=== PATIENT | male | born 1980 | race Caucasian/White ===

== ENCOUNTER 2018-11-16 08:51 | Inpatient (IN) | payer OTHER ==
[2018-11-15 14:44] VITALS: Ht 177.8 cm; Wt 84.0 kg
[2018-11-16] VITALS (20 sets, daily range): BP systolic 104–157; BP diastolic 53–84; PULSE 69–115; RESP 16–20
[~2018-11-16] VITALS: Ht 177.8 cm; Wt 84.0 kg
[~2018-11-16 08:51] MED LIST: CEFAZOLIN 2 GM/50 ML (PMX) 50 ML IVPB ONE; LACTATED RINGER'S 1,000 ML IV SCH
[2018-11-16] MEDS ORDERED: OLME20TA20 PO (09:34)
[2018-11-16] MEDS ORDERED: PARO30TA48 PO (09:35)
[2018-11-16] MEDS ORDERED: ALLO100T PO (09:35)
[2018-11-16] MEDS ORDERED: PROPOFOL 20 ML ONE ×2 (09:42→11:50)
[2018-11-16] MEDS ORDERED: CEFAZOLIN 1 GM INJ ONE (09:42)
[2018-11-16] MEDS ORDERED: ROCURONIUM 50 MG INJ ONE ×3 (09:42→12:51)
[2018-11-16] MEDS ORDERED: SUCCINYLCHOLINE CHLORIDE 100 MG/5 ML SYG IV ONE (09:42)
[2018-11-16] MEDS ORDERED: MIDAZOLAM 1 MG/ML 2 ML INJ ONE (09:43)
[2018-11-16] MEDS ORDERED: ONDANSETRON 4 MG INJ ONE (09:43)
[2018-11-16] MEDS ORDERED: DEXAMETHASONE 4 MG/ML 5 ML INJ ONE (09:43)
[2018-11-16] MEDS ORDERED: KETOROLAC 30 MG INJ ONE (09:43)
--- NOTE | 2018-11-16 10:20 | HPN ---
Date/Time of Note Date/Time of Note DATE: 11/16/18 TIME: 10:20 Interval H&P Admission Note Pt. seen H&P reviewed: No system changes NAKITA TABARES MD Nov 16, 2018 10:20
--- NOTE | 2018-11-16 10:52 | PREAC ---
Date/Time of Note Date/Time of Note DATE: 11/16/18 TIME: 10:49 Anesthesia Eval and Record Evaluation Time Pre-Procedure Interview DATE: 11/16/18 TIME: 10:49 Age 38 Sex male NPO: 8 hrs Preoperative diagnosis Cervical Radiculopathy Planned procedure Ant. C5-6 Disecktomy, Possible Ant. Fusion Past Medical History Past Medical History: Includes Cardio: HTN Surgery & Anesthesia Issues No known issue Meds Anticoagulation: No Beta Abdoulaye within 24 hr: No Reason Beta Abdoulaye not given: Pt. not on B-Abdoulaye Reported Medications Allopurinol* (Allopurinol*) 100 Mg Tablet, 100 MG PO DAILY, TAB 11/16/18 Paroxetine Hcl* (Paxil*) 30 Mg Tablet, 30 MG PO DAILY, TAB 11/16/18 Olmesartan Medoxomil (Benicar) 20 Mg Tablet, 20 MG PO DAILY, #30 TAB 11/16/18 Current Medications Lactated Ringer's 1,000 ml @ 0 mls/hr Q0M IV Last administered on 11/16/18at 09:59; Admin Dose 25 MLS/HR; Start 11/16/18 at 08:00; Stop 11/16/18 at 14:00 Meds reviewed: Yes Allergies Coded Allergies: No Known Allergy (Unverified , 11/16/18) Allergies Reviewed: Yes Labs/Studies Labs Reviewed: Reviewed by anesthesiologist test: N/A Pre-procedure Exam Last vitals Vital Signs Date Temp Pulse Resp B/P (MAP) Pulse Ox O2 O2 Flow FiO2 Time Delivery Rate 11/16/18 97.3 95 16 127/84 100 Room Air 09:47 (98) Airway: Adequate mouth opening Mallampati: Mallampati II Teeth: Normal Lung: Normal Heart: Normal ASA Physical Status ASA physical status: 2 Emergency: None Planned Anesthetic General/MAC: ETT Pre-operative Attestations Prior to commencing anesthesia and surgery, the patient was re-evaluated, there was verification of: *The patient's identity *The results of appropriate recent lab work and preoperative vital signs *The above evaluation not changing prior to induction *Anesthetic plan, risk benefits, alternative and complications discussed with patient/family; questions answered; patient/family understands, accepts and wishes to proceed. LEANDRO CUBA MD Nov 16, 2018 10:52
[2018-11-16] MEDS ORDERED: THROMBIN (BOVINE) 5,000 UNIT VIAL TP ONE (11:05)
[2018-11-16] MEDS ORDERED: BUPIVACAINE 0.25%/EPI (SDV) 30 ML INJ ONE (11:05)
[2018-11-16] MEDS ORDERED: POLYMYXIN/BACITRACIN 1L IRRIG ONE (11:05)
[2018-11-16] MEDS ORDERED: GELATIN SIZE 100 SPONGE ONE (11:05)
[2018-11-16] MEDS ORDERED: SURGIFOAM POWDER 1 GM KIT ONE (11:05)
[2018-11-16] MEDS ORDERED: HYDROmorphONE 1 MG/5 ML IV SYRINGE IV PRN ×2 (12:30)
[2018-11-16] MEDS ORDERED: ONDANSETRON 4 MG INJ IV PRN ×2 (12:30→15:30)
[2018-11-16] MEDS ORDERED: NEOSTIGMINE 3 MG/3 ML SYRINGE ONE (13:35)
[2018-11-16] MEDS ORDERED: GLYCOPYRROLATE 0.4 MG INJ ONE (13:35)
[2018-11-16] MEDS ORDERED: AL HYDROX/MG HYDROX/SIMETH 30 ML CUP PO PRN (15:30)
[2018-11-16] MEDS ORDERED: HYDROmorphONE 0.2 MG/ML PCA IV SCH (15:30)
[2018-11-16] MEDS ORDERED: NACL 0.9% 3 ML SYG IV SCH (15:30)
[2018-11-16] MEDS ORDERED: PROCHLORPERAZINE 10 MG TAB PO PRN (15:30)
[2018-11-16] MEDS ORDERED: HYDROCODONE/APAP (5/325) TAB PO PRN ×2 (15:30)
[2018-11-16] MEDS ORDERED: ACETAMINOPHEN 325 MG TAB PO PRN (15:30)
[2018-11-16] MEDS ORDERED: NALOXONE (0.4 MG/ML) INJ IV PRN (15:30)
--- NOTE | 2018-11-16 15:30 | OPR ---
Date/Time of Note Date/Time of Note DATE: 11/16/18 TIME: 15:22 Operative Report Free Text/Dictation DATE OF OPERATION: 11/16/2018 PREOPERATIVE DIAGNOSES: 1. 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 Anterior cervical C5-6 diskectomy. 2. Anterior cervical disc replacement, C5-6 3. Use of Operative microscope. 4. Interpretation of Neuromonitoring SURGEON: Nakita Tabares MD SUPERVISOR TILE AND MOTTLE: GABY Hollingsworth INDICATIONS: Mr. Bryan is a 38-year-old gentleman who presents with a year history of right upper extremity pain wityh weakness refractory to conservative management associated with extension and rotation as well as axial loading. Preoperative imaging studies demonstrated disk degeneration and a disk herniation at the C5-6 level cord compression and C6 nerve root compression. After having failed all attempts at conservative management, he understood the risks included, but were not limited to, infection, neurologic injury, blood loss, dural tear, persistence of preoperative symptoms and a potential need for further operative procedures and elected to proceed with surgery. PROCEDURE IN DETAIL: The patient was brought in the operating room. General anesthesia was obtained. Preoperative antibiotics were given. He was carefully positioned supine on the radiolucent table. The arms were padded and tucked at the sides. The neck was sterilely prepped and draped in the usual fashion. A standard left-sided skin incision was made in a prominent anterior skin fold. This was continued down through subcutaneous tissue to the platysma fascia. Full-thickness skin flaps were developed. The platysma was split in line with the direction of its fibers. The dissection proceeded through the deep cervical fascia at the interval between the esophagus and spine. The prevertebral fascia was carefully incised, cleared off at the anterior aspect of the C5-6 disk space. The anterior longitudinal ligament was carefully isolated as was the longus coli bilaterally. A Bartelso retraction cannula was placed into the C5 vertebral body, and an intraoperative radiograph was obtained to confirm the location of the midline along with the operative level. Once this was confirmed, a 2nd Bartelso pin was placed in the C6 vertebral body, and the longus colli was mobilized bilaterally using bipolar cautery and an elevator. A deep self- retaining retractor was placed underneath the longus colli bilaterally and then distraction was applied across the interspace. The operative microscope was at this point brought in. The osteophyte projecting over the anterior aspect of the C5-6 disk space was at this point resected with a spinal rongeur, and then the anterior portion of the disk was incised with a #15 blade. The disk was excised in its entirety using a series of pituitary rongeurs and angled curettes back to the posterior longitudinal ligament. The uncovertebral osteophyte was resected along its medial 3rd to provide a platform for the disk replacement and also to allow for foraminal decompression. The posterior osteophytes projecting off the back of the C5 and C6 vertebral bodies were slightly burred down, and then the posterior longitudinal ligament was resected , 1st centrally and then in either direction. A foraminotomy was performed bilaterally until a probe could be easily passed along the pathway of the C6 root. Hemostasis was obtained at this point, and then a series of trial sizers were used to select an implant 17 mm wide by 5 mm tall x 17 mm in an anterior-posterior depth. Intraoperative radiographs demonstrated good alignment of the trial, and then the final implant was selected and then inserted into the disk space under trimmer operator three knife's instructions using the appropriate instrumentation. Once this was positioned appropriately and extended to the back of the C5 and C6 vertebral bodies, the operative site was washed out extensively with sterile normal saline. There was no significant bleeding. The Jaspal pins were removed, and the sites were bloc ked off with bone wax. The platysma fascia was then closed with 3-0 Vicryl suture in a interrupted fashion over a medium Hemovac, followed by 4-0 Monocryl suture in a running subcuticular fashion. Dermabond was placed, followed by a sterile dressing. The patient was extubated and transferred out to the postanesthesia care unit in a soft collar in good condition. There were no compl ications. Procedure Date: Nov 16, 2018 Preoperative Diagnosis 1. 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 Anterior cervical C5-6 diskectomy. 2. Anterior cervical disc replacement, C5-6 3. Use of Operative microscope. 4. Interpretation of Neuromonitoring Surgeon see signature line Anodizer GABY Hollingsworth Anesthesia Type: general Estimated Blood Loss: 10 - 50 ml's Transfusion none Specimen none Grafts/Implants Mobi-C [id number] cervical disk arthroplasty Complications none Pt Condition Post Procedure: stable Disposition: PACU Procedure Description PROCEDURE IN DETAIL: The patient was brought in the operating room. General anesthesia was obtained. Preoperative antibiotics were given. He was carefully positioned supine on the radiolucent table. The arms were padded and tucked at the sides. The neck was sterilely prepped and draped in the usual fashion. A standard left-sided skin incision was made in a prominent anterior skin fold. This was continued down through subcutaneous tissue to the platysma fascia. Full-thickness skin flaps were developed. The platysma was split in line with the direction of its fibers. The dissection proceeded through the deep cervical fascia at the interval between the esophagus and spine. The prevertebral fascia was carefully incised, cleared off at the anterior aspect of the C5-6 disk space. The anterior longitudinal ligament was carefully isolated as was the longus coli bilaterally. A Bartelso retraction cannula was placed into the C5 vertebral body, and an intraoperative radiograph was obtained to confirm the location of the midline along with the operative level. Once this was confirmed, a 2nd Bartelso pin was placed in the C6 vertebral body, and the longus colli was mobilized bilaterally using bipolar cautery and an elevator. A deep self- retaining retractor was placed underneath the longus colli bilaterally and then distraction was applied across the interspace. The operative microscope was at this point brought in. The osteophyte projecting over the anterior aspect of the C5-6 disk space was at this point resected with a spinal rongeur, and then the anterior portion of the disk was incised with a #15 blade. The disk was excised in its entirety using a series of pituitary rongeurs and angled curettes back to the posterior longitudinal ligament. The uncovertebral osteophyte was resected along its medial 3rd to provide a platform for the disk replacement and also to allow for foraminal decompression. The posterior osteophytes projecting off the back of the C5 and C6 vertebral bodies were slightly burred down, and then the posterior longitudinal ligament was resected , 1st centrally and then in either direction. A foraminotomy was performed bilaterally until a probe could be easily passed along the pathway of the C6 root. Hemostasis was obtained at this point, and then a series of trial sizers were used to select an implant 17 mm wide by 5 mm tall x 17 mm in an anterior-posterior depth. Intraoperative radiographs demonstrated good alignment of the trial, and then the final implant was selected and then inserted into the disk space under trimmer operator three knife's instructions using the appropriate instrumentation. Once this was positioned appropriately and extended to the back of the C5 and C6 vertebral bodies, the operative site was washed out extensively with sterile normal saline. There was no significant bleeding. The Jaspal pins were removed, and the sites were b locked off with bone wax. The platysma fascia was then closed with 3-0 Vicryl suture in a interrupted fashion over a medium Hemovac, followed by 4-0 Monocryl suture in a running subcuticular fashion. Dermabond was placed, followed by a sterile dressing. The patient was extubated and transferred out to the postanesthesia care unit in a soft collar in good condition. There were no co mplications. NAKITA TABARES MD Nov 16, 2018 15:30
--- NOTE | 2018-11-16 15:39 | PAC ---
Date/Time of Note Date/Time of Note DATE: 11/16/18 TIME: 15:39 Post-Anesthesia Notes Post-Anesthesia Note Last documented vital signs Vital Signs Date Temp Pulse Resp B/P (MAP) Pulse Ox O2 O2 Flow FiO2 Time Delivery Rate 11/16/18 97.3 95 16 127/84 100 Room Air 09:47 (98) Activity: WNL Respiratory function: WNL Cardiovascular function: WNL Mental status: Baseline Pain reasonably controlled: Yes Hydration appropriate: Yes Nausea/Vomiting absent: Yes LEANDRO CUBA MD Nov 16, 2018 15:39
[2018-11-16] MEDS: FENTAnyl 50 MCG/ML VIAL IV PRN ×4 (15:46→16:05)
[2018-11-16] MEDS: ACETAMINOPHEN 1000MG/100ML IV 100 ML IVPB SCH ×2 (15:47→23:41)
[2018-11-16] MEDS: CEFAZOLIN 1 GM/50 ML (PMX) 50 ML IVPB SCH (17:32)
[2018-11-16] MEDS: SOD CHLORIDE 0.9% 1,000 ML IV SCH (18:17)
--- NOTE | 2018-11-16 20:03 | CONS ---
DATE OF ADMISSION: 11/16/2018 DATE OF CONSULTATION: 11/16/2018 TYPE OF CONSULTATION: Postoperative medical. Thank you very much for allowing me to evaluate the above patient who just underwent cervical spine s urgery. HISTORICAL EVENTS: As you well know, this patient was evaluated in 09/2018 when he presented with a 9-month history of neck pain and related right arm radicular pain. The latter had not responded to n onsteroidals and ultimately, he underwent an MRI study. Following the latter and your review and hav ing progressive symptoms and weakness involving the same, he elected to proceed with surgical interve ntion. Postoperatively on the orthopedic floor, he has modest neck pain. He denies cough, wheezing, shortness of breath, chest pain or abdominal pain. He has mild nausea. PAST MEDICAL HISTORY: Includes: 1. Anxiety. 2. Hypertension. 3. Left foot surgery and right foot surgery. 4. Mood disorder. 5. History of gout. ALLERGIES: NONE. SOCIAL HISTORY: He is . Occasionally drinks alcohol. Does not drink alcohol. FAMILY HISTORY: Will be reviewed later. MEDICATIONS PRIOR TO ADMISSION: 1. Allopurinol 100 mg b.i.d. 2. Flexeril 10 mg. 3. Relafen 500 mg. 4. Olmesartan 20 mg per day. 5. Paroxetine 30 mg daily. PHYSICAL EXAMINATION: GENERAL: Male young male in no acute distress. VITAL SIGNS: BP 122/78, pulse 72, respirations were 18. He was afebrile. HEENT: Eyes: Extraocular muscles were full. Nose, mouth and throat are normal. NECK: Collar in place. LUNGS: Clear. HEART: Rhythm regular. ABDOMEN: Nontender. Liver and spleen were not palpable. No mass or tenderness were noted. EXTREMITIES: No edema, no calf tenderness. NEUROLOGIC: No weakness of the lower extremities. IMPRESSION: 1. Stable postoperative cervical spine surgery. 2. History of hypertension. We will resume blood pressure meds. 3. History of gout. We will resume allopurinol. 4. We will evaluate daily for signs and symptoms of thromboembolic disease. Dictated By: LORENZO ALEXANDER MD MR/NTS Conf#: [id number] DID#: [id number] CC: NAKITA TABARES MD;*EndCC*
[2018-11-16] MEDS ORDERED: HYDROmorphONE 0.5 MG/0.5 ML SYG IV PRN (21:30)
[2018-11-17 00:15] VITALS: BP 125/79; PULSE 66; RESP 18
[2018-11-17] MEDS: CEFAZOLIN 1 GM/50 ML (PMX) 50 ML IVPB SCH ×2 (00:33→05:51)
[2018-11-17 05:30] VITALS: BP 126/68; PULSE 70; RESP 18
[2018-11-17] MEDS: ACETAMINOPHEN 1000MG/100ML IV 100 ML IVPB SCH (06:56)
[2018-11-17] MEDS: SOD CHLORIDE 0.9% 1,000 ML IV SCH (06:56)
[2018-11-17 07:14] VITALS: BP 122/62; PULSE 78; RESP 19
--- NOTE | 2018-11-17 08:28 | PDOCDIS ---
Discharge Instructions CONDITION [id number] Patient Condition: [id number] Good HOME CARE INSTRUCTIONS: [id number] Diet Instructions: [id number] Regular ACTIVITY: [id number] Activity Restrictions: Asipq0w Slowly Increase Activity Rest between Activity Avoid heavy lifting Avoid Heavy Housework [id number] Bathing Restrictions: Glbfr0x Shower FOLLOW UP/APPOINTMENTS Follow-up Plan Follow-up with Dr. Tabares in 2 weeks NAKITA TABARES MD Nov 17, 2018 08:28
[2018-11-17] MEDS ORDERED: DEXAMETHASONE 10 MG/ML 1 ML INJ IV ONE (08:30)
--- NOTE | 2018-11-17 08:46 | CONS ---
Assessment/Plan Assessment/Plan Assessment/Plan (Daily) 1. Stable post op cx spine surgery 2. HBP, controlled 3. Hyperlipemia, statin has been continued 4. Can dc if ok with ortho, OT and PT Consultation Date/Type/Reason Admit Date/Time Nov 16, 2018 at 08:51 Initial Consult Date Date/Time of Note DATE: 11/17/18 TIME: 08:43 Detailed Summary Respiratory: No cough Cardiovascular: No chest pain, No lightheadedness Gastrointestinal: no complaints Genitourinary: no complaints Musculoskeletal: neck pain (mild with sl diff swallowing) Exam/Review of Systems Exam Vitals Vital Signs Date Temp Pulse Resp B/P (MAP) Pulse Ox O2 O2 Flow FiO2 Time Delivery Rate 11/17/18 98.1 78 19 122/62 98 07:14 (82) 11/16/18 Nasal 2.0 19:00 Cannula Intake and Output 11/16/18 11/16/18 11/17/18 1515:00 23:00 07:00 IntakeIntake Total 2000 ml 380 ml 2050 ml OutputOutput Total 235 ml 1915 ml BalanceBalance 2000 ml 145 ml 135 ml Neck: No jvd Cardiovascular: regular rate and rhythm Gastrointestinal: soft Extremities: No edema, No tenderness Results Result Diagram: 11/17/18 0424 11/17/18 0424 Results 24hrs Laboratory Tests Test 11/17/18 04:24 11/17/18 07:07 Hemoglobin 13.0 L Hematocrit 37.7 L Sodium Level 139 Potassium Level 5.1 Chloride Level 105 Carbon Dioxide Level 28 Anion Gap 6 Blood Urea Nitrogen 10 Creatinine 0.79 Est Glomerular Filtrat Rate mL/min > 60 Glucose Level 126 Calcium Level 9.3 Lab Scanned Report REFERENCE LAB Medications Medication Current Medications Acetaminophen/ Hydrocodone Bitart ([place] (5/325)) 1 tab Q4H PRN PO .PAIN 1-5; Start 11/16/18 at 15:30 Acetaminophen/ Hydrocodone Bitart ([place] (5/325)) 2 tab Q4H PRN PO .PAIN 6-10; Start 11/16/18 at 15:30 Cefazolin Sodium 50 ml @ 100 mls/hr Q6 IVPB Last administered on 11/17/18at 05:51; Admin Dose 100 MLS/HR; Start 11/16/18 at 18:00; Stop 11/17/18 at 12:29 Prochlorperazine (Compazine) 10 mg Q4H PRN PO NAUSEA/VOMITING; Start 11/16/18 at 15:30 Ondansetron HCl (Zofran Inj) 4 mg Q6H PRN IV NAUSEA/VOMITING Last administered on 11/16/18at 21:45; Admin Dose 4 MG; Start 11/16/18 at 15:30 Al Hydrox/Mg Hydrox/Simethicone (Mag-Al Plus) 15 ml Q4H PRN PO .CONSTIPATION; Start 11/16/18 at 15:30 Docusate Sodium (Colace) 100 mg BID PO ; Start 11/17/18 at 09:00 Acetaminophen (Tylenol Tab) 650 mg Q4H PRN PO TEMP GREATER THAN 101F OR JESISCA; Start 11/16/18 at 15:30 IV Flush (NS 3 ml) 3 ml PER PROTOCOL IV ; Start 11/16/18 at 15:30 Naloxone HCl (Narcan) 0.2 mg Q2M PRN IV RR 8 BREATHS/MIN OR LESS; Start 11/16/18 at 15:30 Acetaminophen 100 ml @ 400 mls/hr Q8H IVPB Last administered on 11/17/18at 06:56; Admin Dose 400 MLS/HR; Start 11/16/18 at 15:30; Stop 11/17/18 at 15:29 Lidocaine (Lidoderm) 1 patch DAILY TD ; Start 11/17/18 at 09:00 Allopurinol (Zyloprim) 200 mg DAILY PO ; Start 11/17/18 at 09:00 Paroxetine HCl (Paxil) 30 mg DAILY PO ; Start 11/17/18 at 09:00 Losartan Potassium (Cozaar) 100 mg DAILY PO ; Start 11/17/18 at 09:00 Sodium Chloride 1,000 ml @ 80 mls/hr [id number] IV Last administered on 11/17/18at 06:56; Admin Dose 80 MLS/HR; Start 11/16/18 at 17:30 Hydromorphone HCl (Dilaudid) 0.5 mg Q3H PRN IV SEVERE PAIN LEVEL 7-10; Start 11/16/18 at 21:30 LORENZO ALEXANDER MD Nov 17, 2018 08:46
[2018-11-17] MEDS ORDERED: LIDOCAINE 5% PATCH TD SCH (09:00)
[2018-11-17] MEDS ORDERED: ALLOPURINOL 100 MG TAB PO SCH (09:00)
[2018-11-17] MEDS ORDERED: DOCUSATE SODIUM 100 MG CAP PO SCH (09:00)
[2018-11-17] MEDS ORDERED: LOSARTAN 50 MG TAB PO SCH (09:00)
[2018-11-17] MEDS ORDERED: PAROXETINE 10 MG TAB PO SCH (09:00)
== END 2018-11-17 11:07 | disposition home or self-care (01) | DRG 518 ==
LOC: REC 08:51 → MS1 16:36
PROVIDERS: ADMIT Orthopaedic Surgery; ATTEND Orthopaedic Surgery
PROC: 0RR30JZ Replacement of Cervical Vertebral Disc with Synthetic Substitute, Open Approach (ICD-10-PCS; principal; 2018-11-16 11:00)
DX: M50.122 Cervical disc disorder at C5-C6 level with radiculopathy (principal)
CPT/HCPCS: 72050; 80048; 85014; 85018; 97161; J0131; J0690; J1100; J1170; J1885; J2250; J2405; J2710; J3010; J7030; L0174